=== PATIENT | female | born 1965 | race Caucasian/White ===

== ENCOUNTER 2017-11-18 20:47 | Emergency (ER) | payer OTHER ==
[~2017-11-18] VITALS: Ht 177.8 cm; Wt 86.3 kg
[2017-11-18] MEDS ORDERED: CIPR-230 PO (21:23)
[2017-11-18 21:27] VITALS: BP 138/74
== END 2017-11-18 21:28 | disposition home or self-care (01) ==
LOC: ER 20:49 → EEVIPCON 20:49 → ER 21:28
DX: R19.7 Diarrhea, unspecified (principal); I10 Essential (primary) hypertension; Z90.710 Acquired absence of both cervix and uterus
CPT/HCPCS: 99283

== ENCOUNTER 2024-03-09 07:48 | Outpatient (CLI) | payer BC ==
[2024-03-09 08:06] LABS: BASOPHILS # (AUTO) 0.1 X10'3 (0-0.2); BASOPHILS % (AUTO) 1.2 % (0-1); EOSINOPHILS # (AUTO) 0.3 X10'3 (0-0.9); EOSINOPHILS % (AUTO) 3.4 % (0-6); HEMATOCRIT 42.5 % (35.0-45.0); HEMOGLOBIN 13.9 g/dl (12.0-16.0); LYMPHOCYTES # (AUTO) 3.9 X10'3 (1.1-4.8); LYMPHOCYTES % (AUTO) 41.8 % (21-51); MEAN CORPUSCULAR HEMOGLOBIN 30.8 PG (27.0-31.0); MEAN CORPUSCULAR HGB CONC 32.8 g/dL (33.0-36.5); MEAN CORPUSCULAR VOLUME 93.8 FL (78-98); MEAN PLATELET VOLUME 7.9 FL (7.4-10.4); MONOCYTES # (AUTO) 0.7 X10'3 (0-0.9); MONOCYTES % (AUTO) 7.9 % (2-12); NEUTROPHILS # (AUTO) 4.2 X10'3 (1.8-7.7); NEUTROPHILS % (AUTO) 45.7 % (42-75); PLATELET COUNT 460 X10'3 (140-440); RED BLOOD COUNT 4.53 X10'6 (4.20-5.60); RED CELL DISTRIBUTION WIDTH 13.7 % (11.5-14.5); WHITE BLOOD COUNT 9.3 X10'3 (4.5-11.0)
[2024-03-09 08:15] LABS: HEMOGLOBIN A1C 5.7 % (4.5-6.2)
[2024-03-09 08:34] LABS: ALANINE AMINOTRANSFERASE 21 U/L (12-78); ALBUMIN 3.3 G/DL (3.4-5.0); ALBUMIN/GLOBULIN RATIO 0.8 (1.1-1.5); ALKALINE PHOSPHATASE 57 IU/L (46-116); ANION GAP 6 (8-16); ASPARTATE AMINO TRANSFERASE 10 U/L (10-37); BILIRUBIN,TOTAL 0.4 MG/DL (0.1-1.0); BLOOD UREA NITROGEN 15 MG/DL (7-18); BUN/CREATININE RATIO 21.1 (10.0-20.0); CALCIUM 8.7 MG/DL (8.5-10.1); CHLORIDE 106 MMOL/L (99-107); CHOL/HDL RATIO 3.4 (0.00-4.99); CHOLESTEROL 250 MG/DL (0-200); CREATININE 0.71 MG/DL (0.40-0.90); FREE T4 (FREE THYROXINE) 0.83 NG/DL (0.73-1.40); GLUCOSE 105 MG/DL (70-104); HDL CHOLESTEROL 74 MG/DL (35-60); LDL CHOLESTEROL 132 MG/DL (50-100); POTASSIUM 3.8 MMOL/L (3.5-5.1); SODIUM 140 MMOL/L (135-145); THYROID STIMULATING HORMONE 3.51 ulU/ml (0.34-4.50); TOTAL CARBON DIOXIDE 27.6 MMOL/L (24-32); TOTAL PROTEIN 7.2 G/DL (6.4-8.2); TRIGLYCERIDES 234 MG/DL (20-135); eGFR 85 ML/MIN
== END 2024-03-09 23:59 | disposition home or self-care (01) ==
LOC: LAB 07:48
PROVIDERS: ATTEND Acupuncturist
DX: Z00.00 Encounter for general adult medical examination without abnormal findings (principal)
CPT/HCPCS: 36415; 80053; 80061; 83036; 84439; 84443; 85025

== ENCOUNTER 2024-06-20 08:02 | Day surgery (SDC) | payer BC ==
[~2024-06-20] VITALS: Ht 177.8 cm; Wt 95.5 kg
[~2024-06-20 08:02] MED LIST: AMIT10TA6; EST1T PO; GABA-530 PO; LOSA1TAB41 PO; TYLENOL #3 PO
[2024-06-20 08:30] VITALS: BP 120/75; PULSE 93; RESP 15
[2024-06-20] MEDS ORDERED: fentaNYL/PF 50MCG/1 ML 2ML syringe ONE (09:28)
[2024-06-20] MEDS ORDERED: midazolam 1 mg/ML 2ml injection ONE (09:28)
[2024-06-20] MEDS ORDERED: propofol inj 20 ML IV ONE ×2 (09:51)
[2024-06-20 10:00] VITALS: BP 116/64; PULSE 94; RESP 18; O2SAT 97
[2024-06-20 10:10] VITALS: BP 98/58; PULSE 81; RESP 17; O2SAT 96
[2024-06-20 10:20] VITALS: BP 102/59; PULSE 80; RESP 13; O2SAT 98
[2024-06-20 10:30] VITALS: BP 109/64; PULSE 79; RESP 18; O2SAT 99
== END 2024-06-20 10:38 | disposition home or self-care (01) ==
LOC: GI LAB 08:02
PROVIDERS: ATTEND Internal Medicine Gastroenterology
DX: Z12.11 Encounter for screening for malignant neoplasm of colon (principal); C18.7 Malignant neoplasm of sigmoid colon; K57.30 Diverticulosis of large intestine without perforation or abscess without bleeding; K64.8 Other hemorrhoids; I10 Essential (primary) hypertension; E66.9 Obesity, unspecified; G62.9 Polyneuropathy, unspecified; Z79.899 Other long term (current) drug therapy; Z90.710 Acquired absence of both cervix and uterus; Z90.89 Acquired absence of other organs; Z98.890 Other specified postprocedural states; Z68.30 Body mass index [BMI] 30.0-30.9, adult; Z83.719 Family history of colon polyps, unspecified
CPT/HCPCS: 45380; 45381; J2250; J2704; J3010; J7030; Z7512; A4620

== ENCOUNTER 2024-07-06 11:04 | Outpatient (CLI) | payer BC ==
[~2024-07-06 11:04] MED LIST changes: +diatr meglu/diatrizoate 30ml oral sol.-(3 dose) bottle ONE; +iohexol 300mg/ml 100ml inj. ONE
== END 2024-07-06 23:59 | disposition home or self-care (01) ==
LOC: RAD 11:04
PROVIDERS: ATTEND Surgery
DX: C18.9 Malignant neoplasm of colon, unspecified (principal); Z12.11 Encounter for screening for malignant neoplasm of colon; N20.0 Calculus of kidney; K57.30 Diverticulosis of large intestine without perforation or abscess without bleeding; Z90.79 Acquired absence of other genital organ(s)
CPT/HCPCS: 74177; Q9967; Q9963

== ENCOUNTER 2024-09-04 05:31 | Inpatient (IN) | payer BC ==
[2024-08-28 13:12] LABS: BASOPHILS # (AUTO) 0.1 X10'3 (0-0.2); BASOPHILS % (AUTO) 0.7 % (0-1); EOSINOPHILS % (AUTO) 0.2 % (0-6); LYMPHOCYTES # (AUTO) 3.1 X10'3 (1.1-4.8); LYMPHOCYTES % (AUTO) 22.1 % (21-51); MEAN CORPUSCULAR HEMOGLOBIN 31.1 PG (27.0-31.0); MEAN CORPUSCULAR HGB CONC 34.4 g/dL (33.0-36.5); MEAN CORPUSCULAR VOLUME 90.4 FL (78-98); MEAN PLATELET VOLUME 7.8 FL (7.4-10.4); MONOCYTES # (AUTO) 0.7 X10'3 (0-0.9); MONOCYTES % (AUTO) 4.6 % (2-12); NEUTROPHILS # (AUTO) 10.3 X10'3 (1.8-7.7); NEUTROPHILS % (AUTO) 72.4 % (42-75); PRE OP HEMATOCRIT 40.9 % (35.0-45.0); PRE OP HEMOGLOBIN 14.1 g/dL (12.0-16.0); PRE OP PLATELET COUNT 608 X10'3 (140-440); PRE OP WHITE BLOOD COUNT 14.2 10'3 (4.8-10.8); RED BLOOD COUNT 4.53 X10'6 (4.20-5.60); RED CELL DISTRIBUTION WIDTH 13.9 % (11.5-14.5)
[2024-08-28 13:38] LABS: ALBUMIN 3.6 G/DL (3.4-5.0); ALBUMIN/GLOBULIN RATIO 0.9 (1.1-1.5); BLOOD UREA NITROGEN 20 MG/DL (7-18); BUN/CREATININE RATIO 24.4 (10.0-20.0); CALCIUM 9.2 MG/DL (8.5-10.1); CREATININE 0.82 MG/DL (0.40-0.90); PRE OP BILIRUB, TOTAL 0.4 MG/DL (0.0-1.0); TOTAL CARBON DIOXIDE 27.9 MMOL/L (24-32); TOTAL PROTEIN 7.5 G/DL (6.4-8.2); eGFR 72 ML/MIN
[2024-08-28 13:48] LABS: ALKALINE PHOSPHATASE 89 IU/L (46-116); CHLORIDE 100 MMOL/L (99-107); PRE OP ALT 17 U/L (30-65); PRE OP ANION GAP 8 (8-16); PRE OP AST 10 U/L (10-37); PRE OP GLUCOSE 107 MG/DL (70-104); PRE OP POTASSIUM 3.4 MMOL/L (3.4-5.1); PRE OP SODIUM 136 MMOL/L (135-145)
[2024-09-04] VITALS (21 sets, daily range): BP systolic 109–130; BP diastolic 67–80; PULSE 88–108; RESP 10–18; TEMP 97.1–98.3; O2SAT 93–99
[~2024-09-04] VITALS: Ht 177.8 cm; Wt 98.3 kg
[~2024-09-04 05:31] MED LIST changes: +ACET-2 PO; +ALBU8HFA INH; -AMIT10TA6; +AMIT10TA6 PO; +CYCL-1 PO; -GABA-530 PO; +GABA300C PO; +MAGNESIUM PO; +MULT-1085 PO; +SUMA100T16 PO; -TYLENOL #3 PO; -diatr meglu/diatrizoate 30ml oral sol.-(3 dose) bottle ONE; -iohexol 300mg/ml 100ml inj. ONE
[2024-09-04] MEDS: famotidine 20mg tablet PO ONE (06:07)
[2024-09-04] MEDS: ringers solution, lacted 1,000 ML IV SCH ×2 (06:08→08:00)
[2024-09-04] MEDS: ceFOXitin sod/dextrose 2g/50ml 50 ML IV ONE (06:08)
[2024-09-04] MEDS ORDERED: LIDOcaine 1% 30ml preserv. free vial ONE (06:47)
[2024-09-04] MEDS ORDERED: BUPIVAcaine 2.5mg/ml inj 50ml vial (contains preservative) ONE (06:48)
[2024-09-04] MEDS ORDERED: INDOCYANINE GREEN 25 MG/10 ML VIAL IV ONE (06:59)
[2024-09-04] MEDS ORDERED: fentaNYL /PF 50mcg/ml 5ml ampule ONE (07:15)
[2024-09-04] MEDS ORDERED: midazolam 1 mg/ML 2ml injection ONE (07:15)
[2024-09-04] MEDS ORDERED: rocuronium 10mg/ml inj IV ONE ×3 (07:17→10:01)
[2024-09-04] MEDS ORDERED: LIDOcaine 2% (20mg/ml) 5ml vial ONE (07:17)
[2024-09-04] MEDS ORDERED: propofol inj 20 ML IV ONE (07:17)
[2024-09-04] MEDS ORDERED: acetaminophen 1,000mg/100ml IV 100 ML IV ONE (07:18)
[2024-09-04] MEDS ORDERED: ondansetron/PF 4mg/2ml inj ONE (07:18)
[2024-09-04] MEDS ORDERED: dexamethasone sod phosphate 4mg/ml inj. ONE (07:18)
[2024-09-04] MEDS ORDERED: sevoflurane 250ml liquid IH ONE (07:20)
[2024-09-04] MEDS ORDERED: morphine 2 MG/ML inj. syringe IV PRN (08:00)
[2024-09-04] MEDS ORDERED: hydrALAZINE 20mg/ml inj. IV PRN (08:00)
[2024-09-04] MEDS ORDERED: fentaNYL/PF 50MCG/1 ML 2ML syringe IV PRN (08:00)
[2024-09-04] MEDS ORDERED: ondansetron/PF 4mg/2ml inj IV PRN ×2 (08:00→14:30)
[2024-09-04] MEDS ORDERED: labetalol 20mg/4ml (5mg/ml) syringe IV PRN (08:00)
[2024-09-04] MEDS ORDERED: labetalol 20mg/4ml (5mg/ml) syringe IV ONE (08:23)
[2024-09-04] MEDS ORDERED: sugammadex 200mg/2ml injection IV ONE (08:44)
[2024-09-04] MEDS: BUPIVAcaine 2.5mg/ml inj 50ml vial (contains preservative) SQ ONE (08:48)
[2024-09-04] MEDS ORDERED: fentaNYL/PF 50MCG/1 ML 2ML syringe ONE (10:01)
[2024-09-04] MEDS: fentaNYL/PF 50MCG/1 ML 2ML syringe IV PRN (13:27)
[2024-09-04] MEDS: morphine 4 MG/ML inj SYRINge IV PRN (14:06)
[2024-09-04] MEDS ORDERED: albuterol 2.5 MG/3 ML nebule NEB PRN (14:25)
[2024-09-04] MEDS ORDERED: cyclobenzaprine 10mg tablet PO PRN (14:25)
[2024-09-04] MEDS ORDERED: naloxone 0.4 mg/ml inj IV PRN (14:30)
[2024-09-04] MEDS ORDERED: HYDROmorphone inj. 0.5 MG/0.5 ML DISP.SYRIN IV PRN (14:30)
[2024-09-04] MEDS: HYDROmorphone 1 mg/ml syringe IV PRN (17:11)
[2024-09-04] MEDS: acetaminophen 325mg tablet PO SCH (19:40)
[2024-09-04] MEDS: potassium CL 20mEq in D5-1/2NS 1,000 ML IV SCH (20:07)
[2024-09-04] MEDS: gabapentin 300mg capsule PO SCH (21:58)
[2024-09-04] MEDS: amitriptyline 10mg tablet PO SCH (22:33)
[2024-09-05 02:00] VITALS: BP 106/61; PULSE 15; RESP 15; TEMP 98.1; O2SAT 96
[2024-09-05 05:23] LABS: BASOPHILS % (AUTO) 0.1 % (0-1); EOSINOPHILS % (AUTO) 0 % (0-6); HEMATOCRIT 34.3 % (35.0-45.0); HEMOGLOBIN 11.3 g/dl (12.0-16.0); LYMPHOCYTES # (AUTO) 1.8 X10'3 (1.1-4.8); LYMPHOCYTES % (AUTO) 9.6 % (21-51); MEAN CORPUSCULAR HEMOGLOBIN 30.3 PG (27.0-31.0); MEAN CORPUSCULAR HGB CONC 32.9 g/dL (33.0-36.5); MEAN CORPUSCULAR VOLUME 92.1 FL (78-98); MONOCYTES # (AUTO) 1.2 X10'3 (0-0.9); MONOCYTES % (AUTO) 6.7 % (2-12); NEUTROPHILS # (AUTO) 15.4 X10'3 (1.8-7.7); NEUTROPHILS % (AUTO) 83.6 % (42-75); PLATELET COUNT 412 X10'3 (140-440); RED BLOOD COUNT 3.72 X10'6 (4.20-5.60); WHITE BLOOD COUNT 18.4 X10'3 (4.5-11.0)
[2024-09-05 05:41] LABS: ALBUMIN 2.8 G/DL (3.4-5.0); ANION GAP 9 (8-16); BLOOD UREA NITROGEN 4 MG/DL (7-18); BUN/CREATININE RATIO 4.3 (10.0-20.0); CALCIUM 8.1 MG/DL (8.5-10.1); CHLORIDE 106 MMOL/L (99-107); CREATININE 0.94 MG/DL (0.40-0.90); GLUCOSE 136 MG/DL (70-104); POTASSIUM 3.8 MMOL/L (3.5-5.1); SODIUM 141 MMOL/L (135-145); TOTAL CARBON DIOXIDE 25.8 MMOL/L (24-32); eCRCL 71 ML/MIN; eGFR 61 ML/MIN
[2024-09-05 06:00] VITALS: BP 98/57; PULSE 94; RESP 18; TEMP 98.6; O2SAT 95
[2024-09-05] MEDS: HYDROchlorothiazide 12.5mg capsule PO SCH (09:11)
[2024-09-05] MEDS: enoxaparin 40mg/0.4ml syringe SQ SCH (09:17)
[2024-09-05] MEDS: losartan 50mg tablet PO SCH (09:17)
[2024-09-05 10:00] VITALS: BP 119/74; PULSE 95; RESP 18; TEMP 98; O2SAT 97
[2024-09-05 18:00] VITALS: BP 114/68; PULSE 86; RESP 17; TEMP 97.7; O2SAT 96
[2024-09-05] MEDS: oxyCODONE/APAP 5-325mg tablet PO PRN (19:00)
[2024-09-05 20:00] VITALS: RESP 18; O2SAT 97
[2024-09-05 22:00] VITALS: BP 111/64; PULSE 88; RESP 16; TEMP 97.2; O2SAT 96
[2024-09-06 04:44] LABS: BASOPHILS # (AUTO) 0.1 X10'3 (0-0.2); BASOPHILS % (AUTO) 0.7 % (0-1); EOSINOPHILS # (AUTO) 0.1 X10'3 (0-0.9); EOSINOPHILS % (AUTO) 0.6 % (0-6); HEMATOCRIT 32.9 % (35.0-45.0); LYMPHOCYTES # (AUTO) 3.4 X10'3 (1.1-4.8); LYMPHOCYTES % (AUTO) 30.8 % (21-51); MEAN CORPUSCULAR HEMOGLOBIN 30.6 PG (27.0-31.0); MEAN CORPUSCULAR HGB CONC 33.5 g/dL (33.0-36.5); MEAN CORPUSCULAR VOLUME 91.5 FL (78-98); MEAN PLATELET VOLUME 7.9 FL (7.4-10.4); MONOCYTES % (AUTO) 8.8 % (2-12); NEUTROPHILS # (AUTO) 6.5 X10'3 (1.8-7.7); NEUTROPHILS % (AUTO) 59.1 % (42-75); PLATELET COUNT 355 X10'3 (140-440); RED CELL DISTRIBUTION WIDTH 14.3 % (11.5-14.5); WHITE BLOOD COUNT 10.9 X10'3 (4.5-11.0)
[2024-09-06 04:56] LABS: ALBUMIN 2.1 G/DL (3.4-5.0); ANION GAP 8 (8-16); BLOOD UREA NITROGEN 7 MG/DL (7-18); BUN/CREATININE RATIO 10.8 (10.0-20.0); CHLORIDE 109 MMOL/L (99-107); CREATININE 0.65 MG/DL (0.40-0.90); GLUCOSE 107 MG/DL (70-104); POTASSIUM 3.4 MMOL/L (3.5-5.1); SODIUM 143 MMOL/L (135-145); TOTAL CARBON DIOXIDE 26.4 MMOL/L (24-32); eCRCL 102 ML/MIN; eGFR > 90 ML/MIN
[2024-09-06 06:59] VITALS: BP 105/75; PULSE 86; RESP 14; TEMP 97.8; O2SAT 98
[2024-09-06 07:30] VITALS: RESP 14; O2SAT 98
[2024-09-06] MEDS ORDERED: PER5325T PO (10:42)
[2024-09-06 11:03] VITALS: BP 120/68; PULSE 89; RESP 18; TEMP 98.1; O2SAT 95
[2024-09-06 11:37] VITALS: RESP 18
== END 2024-09-06 12:00 | disposition home or self-care (01) | DRG 331 ==
LOC: PAS IN 05:31 → SUR 3N 15:00
PROVIDERS: ADMIT Surgery; ATTEND Surgery
PROC: 0DNN4ZZ Release Sigmoid Colon, Percutaneous Endoscopic Approach (ICD-10-PCS; 2024-09-04)
PROC: 8E0W4CZ Robotic Assisted Procedure of Trunk Region, Percutaneous Endoscopic Approach (ICD-10-PCS; 2024-09-04)
PROC: 0D1N4ZP Bypass Sigmoid Colon to Rectum, Percutaneous Endoscopic Approach (ICD-10-PCS; principal; 2024-09-04 07:20)
DX: C18.7 Malignant neoplasm of sigmoid colon (principal); K66.0 Peritoneal adhesions (postprocedural) (postinfection); I10 Essential (primary) hypertension; G43.909 Migraine, unspecified, not intractable, without status migrainosus; Z90.710 Acquired absence of both cervix and uterus; Z79.899 Other long term (current) drug therapy
CPT/HCPCS: Z7506; Z7508; 36415; 80048; 80053; 82948; 85025; 86885; 86900; 86901; 87081; 93005; A4215; A4615; A4618; C1758; G0378; J0131; J0694; J1100; J1171; J1650; J2003; J2250; J2270; J2405; J2704; J3010; J3480; J3490; J7120

== ENCOUNTER 2024-09-25 12:34 | Outpatient (CLI) | payer BC ==
[~2024-09-25 12:34] MED LIST changes: -ACET-2 PO; +GADOTERATE MEGLUMINE 7.5 MMOL/15 ML VIAL IV ONE; +PER5325T PO
== END 2024-09-25 23:59 | disposition home or self-care (01) ==
LOC: MRI 12:34
PROVIDERS: ATTEND Registered Nurse
DX: C18.7 Malignant neoplasm of sigmoid colon (principal); K57.30 Diverticulosis of large intestine without perforation or abscess without bleeding; Z90.710 Acquired absence of both cervix and uterus
CPT/HCPCS: 72197; A9575

== ENCOUNTER → 2024-10-09 | Outpatient (CLI) | payer BC ==
[~2024-10-09] MED LIST changes: -GADOTERATE MEGLUMINE 7.5 MMOL/15 ML VIAL IV ONE
[2024-10-09 10:19] LABS: BASOPHILS # (AUTO) 0.1 X10'3 (0-0.2); BASOPHILS % (AUTO) 1.1 % (0-1); EOSINOPHILS # (AUTO) 0.3 X10'3 (0-0.9); EOSINOPHILS % (AUTO) 3.1 % (0-6); HEMATOCRIT 40.9 % (35.0-45.0); LYMPHOCYTES # (AUTO) 2.8 X10'3 (1.1-4.8); LYMPHOCYTES % (AUTO) 32.8 % (21-51); MEAN CORPUSCULAR HEMOGLOBIN 30.9 PG (27.0-31.0); MEAN CORPUSCULAR HGB CONC 34.3 g/dL (33.0-36.5); MEAN CORPUSCULAR VOLUME 90.3 FL (78-98); MEAN PLATELET VOLUME 8.2 FL (7.4-10.4); MONOCYTES # (AUTO) 0.7 X10'3 (0-0.9); MONOCYTES % (AUTO) 7.8 % (2-12); NEUTROPHILS # (AUTO) 4.8 X10'3 (1.8-7.7); NEUTROPHILS % (AUTO) 55.2 % (42-75); PLATELET COUNT 463 X10'3 (140-440); RED BLOOD COUNT 4.53 X10'6 (4.20-5.60); RED CELL DISTRIBUTION WIDTH 14.3 % (11.5-14.5); WHITE BLOOD COUNT 8.6 X10'3 (4.5-11.0)
[2024-10-09 10:41] LABS: ALANINE AMINOTRANSFERASE 29 U/L (12-78); ALBUMIN 3.9 G/DL (3.4-5.0); ALKALINE PHOSPHATASE 94 IU/L (46-116); ANION GAP 7 (8-16); ASPARTATE AMINO TRANSFERASE 20 U/L (10-37); BILIRUBIN,TOTAL 0.5 MG/DL (0.1-1.0); BLOOD UREA NITROGEN 16 MG/DL (7-18); BUN/CREATININE RATIO 21.6 (10.0-20.0); CALCIUM 9.2 MG/DL (8.5-10.1); CHLORIDE 106 MMOL/L (99-107); CREATININE 0.74 MG/DL (0.40-0.90); GLUCOSE 99 MG/DL (70-104); POTASSIUM 3.5 MMOL/L (3.5-5.1); SODIUM 141 MMOL/L (135-145); TOTAL CARBON DIOXIDE 27.9 MMOL/L (24-32); TOTAL PROTEIN 7.9 G/DL (6.4-8.2); eGFR 81 ML/MIN
[2024-10-09 10:42] LABS: BILIRUBIN,DIRECT 0.1 MG/DL (0-0.3); LACTATE DEHYDROGENASE 140 U/L (81-234)
== END | disposition home or self-care (01) ==
LOC: LAB 07:35
PROVIDERS: ATTEND Registered Nurse
DX: C18.7 Malignant neoplasm of sigmoid colon (principal)
CPT/HCPCS: 36415; 80053; 82248; 82378; 83615; 85025

== ENCOUNTER 2024-12-14 10:08 | Outpatient (CLI) | payer BC | END 2024-12-14 23:59 | disposition home or self-care (01) | LOC: RAD 10:08 | PROVIDERS: ATTEND Surgery | DX: C18.9 Malignant neoplasm of colon, unspecified (principal) | CPT/HCPCS: 36415; 82378 ==

== ENCOUNTER 2025-03-06 11:21 | Outpatient (CLI) | payer BC ==
[2025-03-06 14:13] LABS: MEAN PLATELET VOLUME 8.5 FL (7.4-10.4); RED CELL DISTRIBUTION WIDTH 14.3 % (11.5-14.5)
[2025-03-06 14:38] LABS: CREATININE 0.91 MG/DL (0.40-0.90); TOTAL CARBON DIOXIDE 25.9 MMOL/L (24-32); eGFR 63 ML/MIN
== END 2025-03-06 23:59 | disposition home or self-care (01) ==
LOC: LAB 11:21
PROVIDERS: ATTEND Internal Medicine
DX: C18.7 Malignant neoplasm of sigmoid colon (principal)
CPT/HCPCS: 36415; 80053; 82378; 85025

== ENCOUNTER 2025-06-04 09:54 | Outpatient (CLI) | payer BC ==
[2025-05-30 10:57] LABS: MEAN PLATELET VOLUME 8.4 FL (7.4-10.4); RED CELL DISTRIBUTION WIDTH 13.4 % (11.5-14.5)
[2025-05-30 11:09] LABS: CREATININE 0.84 MG/DL (0.40-0.90); TOTAL CARBON DIOXIDE 27.1 MMOL/L (24-32); eGFR 69 ML/MIN
[~2025-06-04 09:54] MED LIST changes: +AMIT10TA13 PO; -AMIT10TA6 PO
[2025-06-04] MEDS ORDERED: iohexol 300mg/ml 100ml inj. ONE (10:35)
--- NOTE | 2025-06-04 11:41 | RADIOLOGY REPORT ---
Indication: MALIGNANT NEOPLASM OF SIGMOID COLON Technique: CT axial images of the chest, abdomen and pelvis are obtained with intravenous contrast. Coronal and sagittal reformats were obtained. Radiation Dose Information: CTDI volume is 29 mGy. Dose-length product is 2619 mGy*cm Comparison: CT CT ABDOMEN PELVIS on DOS: 07/06/24 FINDINGS: The trachea is patent. No pneumothorax. No pulmonary airspace consolidation. 4 mm right upper lobe subpleural nodule. 3 mm left lower lobe soft tissue nodule. Heart normal in size. No supraclavicular, axillary lymphadenopathy. Bilateral breast implants. Adrenal glands, spleen and pancreas unremarkable. Hepatic steatosis. No CT evidence for cholelithiasis. No hydronephrosis. Nonobstructing left renal calculus measuring 2 mm. Nonobstructing right renalm calculi up to 6 mm. Small hiatal hernia. Stomach partially distended. Small bowel loops are normal in caliber. Postsurgical changes rectosigmoid colon. Colonic diverticular disease. There is mild wall thickening with surrounding stranding of the distal descending / proximal sigmoid colon. Appendix removed. Abdominal aortic atherosclerotic disease. No retroperitoneal lymphadenopathy. Bladder partially distended. No free pelvic fluid. No inguinal lymphadenopathy. [id number] bilateral sacroiliac degenerative joint disease. Paraumbilical hernia containing fat measuring 2.5 cm. IMPRESSION: Postsurgical changes of the rectosigmoid colon. Wall thickening with surrounding stranding involving the distal descending/ proximal sigmoid colon which could represent diverticulitis. Recommend colonoscopy once acute symptoms resolve to exclude underlying colonic lesion/ neoplasm. There are a few tiny pulmonary nodules up to 4 mm. Recommend continued imaging surveillance given the history of sigmoid colon neoplasm. Nonobstructing bilateral renal calculi. Other findings as detailed above.
== END 2025-06-04 23:59 | disposition home or self-care (01) ==
LOC: RAD 09:54
PROVIDERS: ATTEND Internal Medicine
DX: K57.30 Diverticulosis of large intestine without perforation or abscess without bleeding (principal); K44.9 Diaphragmatic hernia without obstruction or gangrene; M46.1 Sacroiliitis, not elsewhere classified; C18.7 Malignant neoplasm of sigmoid colon; I70.0 Atherosclerosis of aorta; R91.8 Other nonspecific abnormal finding of lung field
CPT/HCPCS: 36415; 71260; 74177; 80053; 82378; 85025; Q9967